=== PATIENT | female | born 1970 | race Native Hawaiian/Other Pacific Islander ===

== ENCOUNTER 2018-01-07 04:27 | Inpatient (IN) | payer BC ==
--- NOTE | 2018-01-07 04:58 | ED PDOC ---
Arrival/HPI - General Chief Complaint: Fever Time Seen by Provider: 01/07/18 04:36 Historian: Patient - History of Present Illness Narrative History of Present Illness (Text): 01/07/18 04:58 Belinda Pavon is a 47 year old female, whose past medical history includes B- cell Hodgkin's lymphoma (currently in remission), total hysterectomy with bilateral oophorectomy, and cholecystectomy, who presents to the Emergency department complaining of cough. Patient states she has been experiencing a persistent cough for the past week with associated intermittent fever and wheezing. Patient reports she age herself a Z-amanda and was prescribed Levaquin by her PMD but denies any significant relief. Patient states she has been taking Tylenol for her fever. Patient denies any nausea, vomiting, diarrhea, urinary symptoms, back pain, neck pain, headache, dizziness, or any other complaints. PMD: Dr. Sidra Guaman Time/Duration: 1 week Symptom Onset: Gradual Symptom Course: Unchanged Activities at Onset: Light Context: Home Past Medical History - Provider Review Nursing Documentation Reviewed: Yes - Cardiac Hx Cardiac Disorders: No - Pulmonary Hx Respiratory Disorders: No - Neurological Hx Neurological Disorder: No - HEENT Hx HEENT Disorder: No - Renal Hx Renal Disorder: No - Endocrine/Metabolic Hx Endocrine Disorders: No - Hematological/Oncological Hx Lymphoma: Yes (non-guardado kin's) - Integumentary Hx Dermatological Disorder: No - Musculoskeletal/Rheumatological Hx Musculoskeletal Disorders: No - Gastrointestinal Hx Gastrointestinal Disorders: No - Genitourinary/Gynecological Hx Genitourinary Disorders: No - Psychiatric Hx Psychophysiologic Disorder: No Hx Substance Use: No - Surgical History Hx Cholecystectomy: Yes Hx Hysterectomy: Yes Other/Comment: larisa ovarian cysts Family/Social History - Physician Review Nursing Documentation Reviewed: Yes Family/Social History: Unknown Family HX Smoking Status: Never Smoked Hx Alcohol Use: Yes Frequency of alcohol use: Socially Hx Substance Use: No Allergies/Home Meds Allergies/Adverse Reactions: Allergies No Known Allergies Allergy (Verified 01/07/18 04:35) Home Medications: Home Meds Medication Instructions Recorded Confirmed levoFLOXacin [Levaquin] 500 mg PO DAILY 01/07/18 01/07/18 Review of Systems - Physician Review All systems were reviewed & negative as marked: Yes - Review of Systems Constitutional: Normal. absent: Fevers Eyes: Normal ENT: Normal Respiratory: Cough, Wheezing Gastrointestinal: Normal. absent: Abdominal Pain, Diarrhea, Nausea, Vomiting Genitourinary Female: Normal. absent: Dysuria, Frequency, Hematuria, Urine Output Changes Musculoskeletal: Normal. absent: Back Pain, Neck Pain Skin: Normal. absent: Rash Neurological: Normal. absent: Headache, Dizziness Endocrine: Normal Hemo/Lymphatic: Normal Psychiatric: Normal Physical Exam Vital Signs Reviewed: Yes Vital Signs Temp Pulse Resp BP Pulse Ox 01/07/18 04:36 101.4 F H 101 H 22 119/74 98 Temperature: Febrile Blood Pressure: Normal Pulse: Regular Respiratory Rate: Normal Appearance: Positive for: Well-Appearing, Non-Toxic, Comfortable Pain Distress: None Mental Status: Positive for: Alert and Oriented X 3 - Systems Exam Head: Present: Atraumatic, Normocephalic Pupils: Present: PERRL Extroacular Muscles: Present: EOMI Conjunctiva: Present: Normal Mouth: Present: Moist Mucous Membranes Neck: Present: Normal Range of Motion Respiratory/Chest: Present: Rhonchi (Rhonchi in left lung field). No: Respiratory Distress, Accessory Muscle Use Cardiovascular: Present: Regular Rate and Rhythm, Normal S1, S2. No: Murmurs Abdomen: No: Tenderness, Distention, Peritoneal Signs Back: Present: Normal Inspection Upper Extremity: Present: Normal Inspection. No: Cyanosis, Edema Lower Extremity: Present: Normal Inspection. No: Edema Neurological: Present: GCS=15, CN II-XII Intact, Speech Normal Skin: Present: Warm, Dry, Normal Color. No: Rashes Psychiatric: Present: Alert, Oriented x 3, Normal Insight, Normal Concentration Medical Decision Making ED Course and Treatment: 01/07/18 04:58 Impression: 47 year old female complaining of fever, cough, and wheezing x 1 week. Plan: -- EKG -- Chest X-ray -- Labs, ABG,VBG, blood cultures -- Urinalysis, urine cultures -- IV fluids -- Duoneb -- Tylenol -- Reassess and disposition Progress Notes: Reviewed EKG, sinus tachycardia at 101 bpm. No acute changes. 01/07/18 06:20 Chest X-ray reviewed, shows no acute processes. 01/07/18 06:26 Due to patient's persistent symptoms, cough, fever, and failure of outpt therpay , will admit pt for IV antibiotics and further evaluation. Case discussed with Dr. Menezes, who is aware and agrees with plan. Accepts pt in to her service. Pt will go to [facility] observation for bronchitis and bronchopneumonia. Requests Dr. Bertrand on consult. - Lab Interpretations Lab Results: 01/07/18 05:20 01/07/18 05:57 Lab Results 01/07/18 05:57: Sodium 147, Chloride 107, Potassium 4.1, Carbon Dioxide 23, Anion Gap 21 H, BUN 11, Creatinine 0.8, Est GFR ( Amer) > 60, Est GFR ( Non-Af Amer) > 60, Random Glucose 117 H, Calcium 9.4, Total Bilirubin 0.6, AST 92 H, ALT 118 H, Alkaline Phosphatase 267 H, Total Protein 7.4, Albumin 4.5, Globulin 2.9, Albumin/Globulin Ratio 1.6 01/07/18 05:57: PT 13.9 H, INR 1.20 H, APTT 31.7 01/07/18 05:20: pO2 122 H, VBG pH 7.46 H, VBG pCO2 36.0 L, VBG HCO3 25.6, VBG Total CO2 26.7, VBG O2 Sat (Calc) 98.8 H, VBG Base Excess 2.0, VBG Potassium 4.0 , Sodium 138.0, Chloride 105.0, Glucose 114 H, Lactate 1.0, FiO2 21.0, Venous Blood Potassium 4.0 01/07/18 05:20: WBC 11.6 H, RBC 4.41, Hgb 13.4, Hct 39.2, MCV 88.9, MCH 30.4, MCHC 34.2, RDW 13.4, Plt Count 186, MPV 8.6, Gran % 87.1 H, Lymph % (Auto) 5.3 L , Lamb % (Auto) 6.7 H, Eos % (Auto) 0.8 L, Baso % (Auto) 0.1, Gran # 10.13 H, Lymph # (Auto) 0.6 L, Lamb # (Auto) 0.8 H, Eos # (Auto) 0.1, Baso # (Auto) 0.01 01/07/18 05:20: pCO2 30 L, pO2 116.0 H, HCO3 22.9, ABG pH 7.49 H, ABG Total CO2 23.8, ABG O2 Saturation 98.3 H, ABG O2 Content 15.8, ABG Base Excess 0.2, ABG Hemoglobin 11.5 L, ABG Carboxyhemoglobin 0.7, POC ABG HHb (Measured) 1.7, ABG Methemoglobin 0.9, ABG O2 Capacity 16.1, Hgb O2 Saturation 96.7, FiO2 21.0 I have reviewed the lab results: Yes - RAD Interpretation Radiology Orders: 01/07/18 04:59 CHEST PORTABLE [RAD] Stat Order Entry Clerk: ED Physician - EKG Interpretation Interpreted by ED Physician: Yes Type: 12 lead EKG - Medication Orders Current Medication Orders: Discontinued Medications Acetaminophen (Tylenol 325mg Tab) 650 mg PO STAT STA Stop: 01/07/18 05:07 Last Admin: 01/07/18 05:20 Dose: 650 mg MAR Pain/Vitals Document 01/07/18 05:20 ISAIAH (Rec: 01/07/18 05:20 ISAIAH [facility]) Pain Reassessment Is This A Pain ReAssessment? No Albuterol/Ipratropium (Duoneb 3 Mg/0.5 Mg (3 Ml) Ud) 3 ml IH ONCE STA Stop: 01/07/18 05:01 Last Admin: 01/07/18 05:20 Dose: 3 ml Sodium Chloride (Sodium Chloride 0.9%) 1,000 mls @ 2,000 mls/hr IV .Q30M ONE Stop: 01/07/18 05:28 Last Admin: 01/07/18 05:20 Dose: 2,000 mls/hr eMAR Start Stop Document 01/07/18 05:20 ISAIAH (Rec: 01/07/18 05:20 ISAIAH [facility]) Intravenous Solution Start Date 01/07/18 Start Time 05:20 - Scribe Statement The provider has reviewed the documentation as recorded by the Issa Brown Provider Scribe Attestation: All medical record entries made by the Scribe were at my direction and personally dictated by me. I have reviewed the chart and agree that the record accurately reflects my personal performance of the history, physical exam, medical decision making, and the department course for this patient. I have also personally directed, reviewed, and agree with the discharge instructions and disposition.' Disposition/Present on Arrival - Present on Arrival Any Indicators Present on Arrival: No History of DVT/PE: No History of Uncontrolled Diabetes: No Urinary Catheter: No History of Decub. Ulcer: No History Surgical Site Infection Following: None - Disposition Have Diagnosis and Disposition been Completed?: Yes Diagnosis: Bronchitis, Bronchopneumonia Disposition: HOSPITALIZED Disposition Time: 06:28 Patient Plan: Observation Patient Problems: Current Active Problems Problem Status Onset Bronchitis Acute Bronchopneumonia Acute Condition: STABLE Forms: [employer] (Kinyarwanda)
[2018-01-07] MEDS ORDERED: Sodium Chloride 0.9% 1,000 ML IV ONE (04:59)
[2018-01-07] MEDS ORDERED: Albuterol-Ipratrop 3 mg / 0.5 (3 ml) UD IH STA (05:00)
[2018-01-07 05:36] LABS: ARTERIAL BLOOD GAS HCO3 22.9 mmol/L (21-28); ARTERIAL BLOOD GAS HEMOGLOBIN 11.5 g/dL (11.7-17.4); ARTERIAL BLOOD GAS O2 CAPACITY 16.1 mL/dl (16-24); ARTERIAL BLOOD GAS O2 CONTENT 15.8 ML/dl (15-23); ARTERIAL BLOOD GAS O2 SAT 98.3 % (95-98); ARTERIAL BLOOD GAS PCO2 30 mm/Hg (35-45); ARTERIAL BLOOD GAS PH 7.49 (7.35-7.45); ARTERIAL BLOOD GAS TCO2 23.8 mmol.L (22-28)
[2018-01-07 05:39] LABS: BASO # 0.01 K/mm3 (0.0-2.0); BASO % 0.1 % (0.0-3.0); EOS # 0.1 (0.0-0.7); EOS % 0.8 % (1.5-5.0); GRAN # 10.13 (1.4-6.5); GRAN % 87.1 % (50.0-68.0); HEMOGLOBIN 13.4 g/dL (12.0-16.0); LYMPH # 0.6 (1.2-3.4); LYMPH % 5.3 % (22.0-35.0); MEAN CELL VOLUME 88.9 fl (80.0-105.0); MEAN CORPUSCULAR HEMOGLOBIN 30.4 pg (25.0-35.0); MEAN CORPUSCULAR HGB CONC 34.2 g/dl (31.0-37.0); MEAN PLATELET VOLUME 8.6 fl (7.0-11.0); MONO # 0.8 (0.1-0.6); MONO % 6.7 % (1.0-6.0); RBC 4.41 10^6/uL (3.5-6.1); RED CELL DISTRIBUTION WIDTH 13.4 % (11.5-14.5); WHITE BLOOD COUNT 11.6 10^3/ul (4.5-11.0)
[2018-01-07 05:45] LABS: VENOUS BLOOD GAS PO2 122 mm/Hg (30-55); VENOUS BLOOD PH 7.46 (7.32-7.43)
[2018-01-07 06:25] LABS: INR 1.2 (0.93-1.08); PARTIAL THROMBOPLASTIN TIME 31.7 Seconds (25.1-36.5); PROTHROMBIN TIME 13.9 SECONDS (9.4-12.5)
[2018-01-07 06:27] LABS: ALB/GLOB RATIO 1.6 (1.1-1.8); ALBUMIN 4.5 g/dL (3.0-4.8); ALT/SGPT 118 U/L (7-56); AST/SGOT 92 U/L (14-36); BLOOD UREA NITROGEN 11 mg/dL (7-21); CALCIUM 9.4 mg/dL (8.4-10.5); GFR AFRICAN-AMERICAN > 60; GFR NON-AFRICAN AMERICAN > 60
[2018-01-07] MEDS ORDERED: cefTRIAXone 1 gm 1 GM/100 ML BAG IV STA (06:31)
[2018-01-07] MEDS ORDERED: Azithromycin 500MG/NS 250ml 500 MG/250 ML BAG IV STA (06:31)
[2018-01-07 08:00] LABS: URINE BILIRUBIN NEGATIVE (NEGATIVE); URINE BLOOD NEGATIVE (NEGATIVE); URINE GLUCOSE (UA) NEGATIVE (NEGATIVE); URINE LEUKOCYTE ESTERASE NEGATIVE Leu/uL (NEGATIVE); URINE PROTEIN NEGATIVE mg/dL (<30 mg/dL); URINE UROBILINOGEN 0.2 E.U./dL (<1 E.U./dL)
--- NOTE | 2018-01-07 08:07 | RAD ---
HISTORY: Sepsis Patient COMPARISON: No prior. FINDINGS: LUNGS: No active pulmonary disease. PLEURA: No significant pleural effusion identified, no pneumothorax apparent. CARDIOVASCULAR: Normal. OSSEOUS STRUCTURES: No significant abnormalities. VISUALIZED UPPER ABDOMEN: Normal. OTHER FINDINGS: None. IMPRESSION: No active disease.
[2018-01-07 08:15] LABS: URINE APPEARANCE CLEAR (CLEAR); URINE COLOR YELLOW (YELLOW)
[2018-01-07] MEDS ORDERED: cefTRIAXone 1 gm 1 GM/100 ML BAG IVPB SCH (10:00)
[2018-01-07] MEDS ORDERED: Azithromycin 500 MG in Sodium Chloride 0.9% 250 ML IVPB SCH (10:00)
[2018-01-07] MEDS ORDERED: Azithromycin 500MG/NS 250ml 500 MG/250 ML BAG IVPB SCH (10:00)
[2018-01-07] MEDS: MethylPREDNISolone 40 mg Vial IVP SCH ×2 (10:40→21:07)
[2018-01-07] MEDS: Albuterol-Ipratrop 3 mg / 0.5 (3 ml) UD IH SCH ×2 (13:14→20:25)
--- NOTE | 2018-01-07 13:17 | CARD ---
APPROVED REPORT EKG Measurement Heart [id number] <Conclusion> Sinus tachycardia Otherwise normal ECG
[2018-01-07 16:17] VITALS: BMI 31.2
[2018-01-07] MEDS ORDERED: Pneumococcal 23-Valent Vaccine IM ONE (16:17)
[2018-01-07] MEDS ORDERED: Benzocaine/Menthol (Cepacol) Lozenge MT PRN (19:46)
--- NOTE | 2018-01-07 20:30 | CT ---
EXAM: CT Chest Without Intravenous Contrast EXAM DATE/TIME: 01/07/2018 7:20 PM CLINICAL HISTORY: The patient age is 47 years old and is female; Signs and symptoms; Fever and other: Bronchitis; Additional info: Pneumonia Facility exam id and description: Ct chests chest w/o contrast TECHNIQUE: Axial computed tomography images of the chest without intravenous contrast. All CT scans at this facility use one or more dose reduction techniques, viz.: automated exposure control; ma/kV adjustment per patient size (including targeted exams where dose is matched to indication; i.e. head); or iterative reconstruction technique. Coronal and sagittal reformatted images were created and reviewed. COMPARISON: DX - CHEST PORTABLE 2018-01-07 05:02 FINDINGS: Lungs: A left perihilar consolidation or mass is identified measuring 2.8 x 2.3 cm. Differential considerations include infection and malignancy. There is groundglass density and multiple nodules are visualized within the left upper lobe of the lung. One of these nodule measures 1.1 cm on series 3 image 46. On series 3 image 41, there is a 1.2 cm nodule. Additional nodules are visualized. Additional linear consolidative bands are visualized within the left lower lobe on series 4 image 78. Mild atelectatic changes visualized within the right lower lobe. Pleural space: No pneumothorax. There is a minimal right pleural effusion. Minimal irregular left pleural thickening is visualized. Heart: No cardiomegaly. No significant pericardial effusion. Bones/joints: Hypertrophic degenerative changes are noted within the spine. There is mild increased kyphosis of the thoracic spine. Vasculature: No thoracic aortic aneurysm. Lymph nodes: Small mediastinal lymph nodes are identified, without significant mediastinal lymphadenopathy. Evaluation for hilar lymphadenopathy is limited by the absence of intravenous contrast. Gallbladder and bile ducts: Surgical clips are identified within the gallbladder fossa, compatible with cholecystectomy. Tubes, lines and devices: A right-sided Port-A-Cath is visualized. IMPRESSION: 1. A left perihilar consolidation or mass is identified measuring 2.8 x 2.3 cm. Differential considerations include infection and malignancy. Clinical correlation and possible PET/CT are recommended. 2. There is groundglass density and multiple nodules are visualized within the left upper lobe of the lung measuring up to 1.2 cm. See recommendation below. 3. Additional linear consolidative bands are visualized within the left lower lobe. 4. There is a minimal right pleural effusion. Minimal irregular left pleural thickening is visualized. 5. Incidental/non-acute findings are described above. FLEISCHNER SOLID GREATER THAN 8mm MULTIPLE As per Fleischner Society 2017 guidelines for follow-up and management of pulmonary nodules: For patients at low risk (minimal or absent history of smoking and of other known risk factors), recommend CT at 3-6 months, then consider CT at 18-24 months. For patient at high risk (history of smoking or of other known risk factors), recommend CT at 3-6 months, then CT at 18-24 months.
[2018-01-07] MEDS: Vancomycin 1gm in NS 250ml 1 GM/250 ML BAG IVPB SCH (20:33)
[2018-01-07] MEDS: Cefepime IV 2 gm in NS 2 GM/100 ML BAG IVPB SCH (22:21)
[2018-01-07 23:27] LABS: PH,URINE 6.5 (4.7-8.0); URINE BILIRUBIN NEGATIVE (NEGATIVE); URINE BLOOD TRACE-INTACT (NEGATIVE); URINE GLUCOSE (UA) NEGATIVE (NEGATIVE); URINE LEUKOCYTE ESTERASE NEGATIVE Leu/uL (NEGATIVE); URINE PROTEIN TRACE mg/dL (<30 mg/dL); URINE UROBILINOGEN 0.2 E.U./dL (<1 E.U./dL)
[2018-01-07 23:35] LABS: URINE APPEARANCE SLIGHT-CLOUDY (CLEAR); URINE COLOR YELLOW (YELLOW)
--- NOTE | 2018-01-07 23:36 | CON ---
DATE: 01/07/2018 PULMONARY CONSULT REFERRING PHYSICIAN: Mitzi Menezes MD REASON FOR CONSULT: Cough, shortness of breath, fever, pneumonia. 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 From the last week and half, have been having cough. She took Zithromax as outpatient without much relief and then also went to PMD, give her Levaquin without much relief and end up come to ER with cough, shortness of breath. She does have a history of B-cell Hodgkin lymphoma treated in remission at present time. She has an extensive history of issue requiring hysterectomy and bilateral oophorectomy in the past. Does not know if snore. She is sleepy and tired during the daytime. No nausea, no vomiting, diarrhea, leg pain or leg swelling. PAST MEDICAL HISTORY: B-cell Hodgkin lymphoma in remission, history of hysterectomy and bilateral oophorectomy, history of cholecystectomy. SOCIAL HISTORY: She is a dentist. Nonsmoker, nondrinker. FAMILY HISTORY: No significant cardiopulmonary disease reported. ALLERGIES: NONE KNOWN. MEDICATIONS: She is on DuoNeb every 6 hours, Rocephin 1 g daily also Solu-Medrol 40 mg every 12 hours, Tylenol p.r.n. basis, Zithromax 500 mg daily. REVIEW OF SYSTEMS: No headache, no rhinitis. Has cough, sputum production, short of breath, wheezing. No nausea, no vomiting, no diarrhea, dysuria, leg pain or leg swelling. Daytime sleepy and tired. PHYSICAL EXAMINATION: GENERAL: Lying in the bed, mild distress. VITAL SIGNS: T-max is 101, heart rate is 92, respiratory rate is 20, blood pressure 127/83, pulse ox 98% on room air. HEENT: Moist mucous membranes. Small oral cavity. Crowded airway. Mallampati score is IV. NECK: Supple. No JVD. LUNGS: Have scattered rhonchi and wheezing. HEART: S1 and S2. ABDOMEN: Soft, nontender, no organomegaly. EXTREMITIES: No edema. NEUROLOGIC: Awake, alert, follows simple commands. LABORATORY DATA: Shows hemoglobin 13.4, hematocrit 39.2, WBC 11.6, platelet count is 186. INR 1.2. PTT is 32. Blood gases shows pH 7.49, pCO2 of 30, O2 of 116. Sodium 147, potassium 4.1, chloride 107, bicarbonate 23, BUN 11, creatinine 7.8, glucose 117, calcium 9.4, total bili 0.6, AST 92, ALT 118, alk phos is 267, albumin is 4.5. Urine is unremarkable other than some ketones. Influenza A and B is negative. Has a chest x-ray done in ER shows no active disease. Had EKG done which shows heart rate is 101, otherwise unremarkable. IMPRESSION AND PLAN: Sepsis, probably have pneumonia, rule out asthma, history of non-Hodgkin lymphoma in remission, failed outpatient treatment with Zithromax and Levaquin. Patient started on Rocephin and Zithromax. I will suggest discontinuing both of them and start cefepime, also we will start vancomycin. Get CT of the chest without contrast. Keep head elevated at 45 degrees. Aspiration precaution. Gastric prophylaxis, deep venous thrombosis prophylaxis. We will make further recommendation once the CT result is back. She could have a new onset of bronchospasm. As outpatient, may need sleep study and we will follow with you. Jefry Bertrand MD
[2018-01-07 23:53] LABS: URINE EPITHELIAL CELLS 0 - 2 /hpf (0-5); URINE RBC 0 - 2 /hpf (0-2); URINE WBC 0 - 2 /hpf (0-6)
[2018-01-08] MEDS: Albuterol-Ipratrop 3 mg / 0.5 (3 ml) UD IH SCH ×4 (02:46→20:47)
--- NOTE | 2018-01-08 03:53 | HP ---
CHIEF COMPLAINT: Cough, shortness of breath. HISTORY OF PRESENT ILLNESS: Ms. Belinda Pavon is a 47-year-old female with past medical history of B-cell Hodgkin lymphoma, currently in remission, total hysterectomy with bilateral oophorectomy, cholecystectomy, came to the emergency department complaining of cough and shortness of breath. Patient states that she has been experiencing persistent cough for past week with associated intermittent fever and wheezing. Patient reports that she used Z-Angel and levaquin that was prescribed by her PMD, but that did not help her wheezing. Denies significant relief with antibiotics. Patient states she has been taking her Tylenol for her fever. Denies nausea, vomiting, diarrhea, urinary symptoms, back pain, neck pain, headache, or dizziness. PAST MEDICAL HISTORY: As above. Non Hodgkin's lymphoma, cholecystectomy, hysterectomy, bilateral ovarian cyst removal. HABITS: Never smoked. No drugs. No ethanol. FAMILY HISTORY: Unknown family history. ALLERGIES: PATIENT IS NOT ALLERGIC WITH ANY MEDICATIONS. HOME MEDICATIONS: Levaquin. REVIEW OF SYSTEMS: Patient was seen and examined at the bedside in her room, still coughing, feeling shortness of breath. No abdominal pain. No diarrhea. No nausea or vomiting. No chest pain. No dysuria. No frequency. No hematuria. No change in the urinary output. No back pain. No neck pain. No headache. No rashes. PHYSICAL EXAMINATION: VITAL SIGNS: Temperature 101.4, pulse 101, respiratory rate 22, blood pressure 119/74, pulse oximetry 98%. HEENT: Head: Normocephalic and atraumatic. Eyes: PERRLA. Extraocular muscles are intact. Conjunctivae are clear. Nose patent. NECK: Supple. No carotid bruit, JVD or thyromegaly. CHEST: Bilaterally symmetrical. HEART: S1 and S2 positive. LUNGS: Clear to auscultation. ABDOMEN: Soft. Bowel sounds present. No organomegaly. EXTREMITIES: No edema. No cyanosis. NEUROLOGIC: Patient is awake and alert. Moving all four extremities. No focal deficit. LABORATORY DATA: White blood cells 11.6, hemoglobin 13.4, hematocrit 39.2, platelets 186. Sodium 141, potassium 4.1, BUN 11, creatinine noted glucose 117. ASSESSMENT AND PLAN: Ms. Belinda Pavon is a 47-year-old with leukocytosis, hyperglycemia, bronchitis, failed outpatient treatment, rule out bronchopneumonia. We admitted the patient, started antibiotics. CAT scan of the chest. Pulmonary consult called. Left perihilar consolidation or mass is identified, 2.8 x 2.3 cm. Differential consideration include infection or malignancy. Clinical correlation with possibly PET scan/CT scan was recommended. There is ground glass density and multiple nodularity visualized within the left upper lobe of the lung measuring up to 1.2 cm. Additionally, there is consolidation/mass visualized within the left lower lobe. There is a minimal right pleural effusion and minimal irregular flat pleural thickening visualized. Spot Sprayer is on the case. Electrocardiography and chest x-ray appreciated. Patient has a history of B-cell Hodgkin's lymphoma, currently in remission, total hysterectomy, bilateral oophorectomy. Patient was constantly coughing. They give her lozenges every 2 hours, getting albuterol, got Pneumo vaccine. Dr. Bertrand started patient on Maxipime. Started on Solu-Medrol, vancomycin. Repeat labs and gastrointestinal and deep venous thrombosis. We will follow up. Mitzi Menezes MD SEVER[facility]
[2018-01-08 06:52] LABS: BLOOD UREA NITROGEN 11 mg/dL (7-21); CALCIUM 9.4 mg/dL (8.4-10.5); GFR AFRICAN-AMERICAN > 60; GFR NON-AFRICAN AMERICAN > 60; HDL CHOLESTEROL 44 mg/dL (29-60); HEMOGLOBIN 12.7 g/dL (12.0-16.0); MEAN CELL VOLUME 88.4 fl (80.0-105.0); MEAN CORPUSCULAR HGB CONC 33.9 g/dl (31.0-37.0); MEAN PLATELET VOLUME 8.4 fl (7.0-11.0); RBC 4.24 10^6/uL (3.5-6.1); RED CELL DISTRIBUTION WIDTH 13.6 % (11.5-14.5)
[2018-01-08 07:02] LABS: LDL CHOLESTEROL 96 mg/dL (0-129)
[2018-01-08 07:05] LABS: IRON 58 ug/dL (45-180)
[2018-01-08 07:14] LABS: % IRON SATURATION 18 % (20-55); TOTAL IRON BINDING CAPACITY 315 ug/dL (265-497)
[2018-01-08] MEDS: Enoxaparin 30 mg Syringe SC SCH (10:31)
[2018-01-08] MEDS: Cefepime IV 2 gm in NS 2 GM/100 ML BAG IVPB SCH ×2 (10:31→21:46)
[2018-01-08] MEDS: MethylPREDNISolone 40 mg Vial IVP SCH ×2 (10:32→21:42)
[2018-01-08] MEDS: Vancomycin 1gm in NS 250ml 1 GM/250 ML BAG IVPB SCH ×2 (10:32→21:43)
[2018-01-08 13:59] LABS: FOLATE 17.9 ng/mL
--- NOTE | 2018-01-08 19:15 | PN ---
DATE: 01/08/2018 PULMONARY PROGRESS NOTE REFERRING PHYSICIAN: Mitzi Menezes MD. SUBJECTIVE: She is sitting up in a bed, feels a little better. Fever is down. T-max was 100.3, heart rate 74. Cough is better. No nausea. No vomiting. No diarrhea. No leg pain or leg swelling. OBJECTIVE: GENERAL: In no acute distress. VITAL SIGNS: Temp is 98, heart rate is 74, respiratory rate is 20, blood pressure 124/88, pulse ox 96% on room air. HEENT: Moist mucous membrane. Crowded airway. NECK: Supple. No JVD. LUNGS: Have scattered rhonchi, but improved. HEART: S1 and S2. ABDOMEN: Soft, nontender. No organomegaly. EXTREMITIES: No edema. NEUROLOGICAL: Awake and alert. Follows simple command. CHEST: She has a Port-A-Cath in the right chest area. LABORATORY DATA: Shows hemoglobin 12.7, hematocrit 37.5, WBC 8, platelet count is 191. Sodium 146, potassium 4.7, chloride 109, bicarbonate 25, BUN 11, creatinine 0.7, glucose 147, hemoglobin A1c 5.9, iron is 58, AST 92, ALT 118, alk phos is 267, triglycerides 114, vitamin B12 of 209, folate 17.9, TSH 0.85. Urinalysis unremarkable. Influenza A and B have been negative. Microbiology: Blood culture, sputum culture, so far there is no growth. CAT scan of the chest is done yesterday shows left perihilar consolidation or mass is identified, which is 2.8 x 2.3 cm. There are ground-glass densities and multiple nodules are visualized in the left upper lobe. One of these measured 1.1 cm in series 3, image 46. On the series 3, image 41, there is a 1.2 cm nodule. There is minimal right pleural effusion. MEDICATIONS: She is Cepacol lozenges every 2 hours p.r.n., DuoNeb every 6 hours, Lovenox 30 mg subcu daily, cefepime 2 g IV every 12 hours, Pepcid 40 mg daily, Solu-Medrol 40 mg every 12 hours, Tylenol p.r.n. basis, vancomycin 1 g IV every 12 hours. IMPRESSION AND PLAN: Sepsis with multilobe pneumonia, left hilar mass and left upper lobe infiltrate/nodules, history of non-Hodgkin's lymphoma. The patient also has a [id number]. According to the patient, her [id number] was flushed about a week to 10 days ago. At that time, it was hurting when flush was done. So far, blood culture is negative. We will get echocardiogram to assure there is no endocarditis. For now, continue antibiotics. We will cut down steroids. Continue inhaled bronchodilator. Need further CT to assure the stability of infiltrate. If does not improve, we will need biopsy. Follow up labs in the morning. Thank you and we will follow with you. Jefry Bertrand MD
--- NOTE | 2018-01-08 22:02 | CP.PCM.CON ---
<Jeanie Reyes - Last Filed: 01/08/18 21:47> History of Present Illness - History of Present Illness History of Present Illness: General Surgery consult note for Dr. Ohara Consulted for: possibly infected portacath Patient is a 47F with PMH of hodgkins lymphoma, currently in remission, who was admitted for persistent fevers and cough/chest pain. Surgery was consulted to evaluate for possible infected portacath. Patient states that her cough was non- productive, and associated with sharp chest pain. Patient denies any nausea, vomiting, diarrhea, dysuria, hematuria, back pain, or any other symptoms. Patient states that her symptoms have improved with IV antibiotics. She is currently afebrile since and initial fever on admission of 101.4. Patient has had a portacath in place in [place] right anterior chest wall for 5 years. She has had it flushed regularly and 2 weeks ago she had some pain when it was flushed, but it still functioned. Patient expresses desire to have port removed as it is no longer in use and she has had a port infection prior PMH: hodgkins lymphoma PSH: hysterectomy, oopherectomy, cholecystectomy ALL: NKDA Review of Systems - Review of Systems All systems: reviewed and no additional remarkable complaints except (as per HPI ) Past Patient History - Past Medical History & Family History Past Medical History?: Yes Past Family History: Reviewed and not pertinent - Past Social History Smoking Status: Never Smoked - CARDIAC Hx Cardiac Disorders: No - PULMONARY Hx Respiratory Disorders: Yes Hx Pneumonia: Yes - NEUROLOGICAL Hx Neurological Disorder: No - HEENT Hx HEENT Problems: No - RENAL Hx Chronic Kidney Disease: No - ENDOCRINE/METABOLIC Hx Endocrine Disorders: No - HEMATOLOGICAL/ONCOLOGICAL Hx Blood Disorders: Yes (SEPSIS) Hx Cancer: Yes (B CELL HODGKIN'S LYMPHOMA -IN REMISSION) Hx Chemotherapy: Yes (H/O) - INTEGUMENTARY Hx Dermatological Problems: No - MUSCULOSKELETAL/RHEUMATOLOGICAL Hx Musculoskeletal Disorders: No Hx Falls: No - GASTROINTESTINAL Hx Gastrointestinal Disorders: Yes Hx Gall Bladder Disease: Yes (CHOLECYTSTECTOMY 2009) - GENITOURINARY/GYNECOLOGICAL Hx Genitourinary Disorders: Yes (TOTAL HYSTERECTOMY WITH BILATERAL OOPHORECTOMY) - PSYCHIATRIC Hx Psychophysiologic Disorder: No Hx Substance Use: No - SURGICAL HISTORY Hx Surgeries: Yes (RIGHT CHEST WALL PORT X3) Hx Cholecystectomy: Yes Hx Hysterectomy: Yes Other/Comment: 2016 larisa ovarian cysts-TOTAL HYSTE RECTOMY WITH BILATERAL OOPHORECTOMY- Meds Allergies/Adverse Reactions: Allergies Allergy/AdvReac Type Severity Reaction Status Date / Time No Known Allergies Allergy Verified 01/07/18 13:52 - Medications Medications: Current Medications Acetaminophen (Tylenol 325mg Tab) 650 mg PO Q4H PRN PRN Reason: MILD PAIN 1-3, FEVER Last Admin: 01/07/18 10:38 Dose: 650 mg Albuterol/Ipratropium (Duoneb 3 Mg/0.5 Mg (3 Ml) Ud) 3 ml IH [id number] TERRELL Last Admin: 01/08/18 20:47 Dose: 3 ml Benzocaine/Menthol (Cepacol Sore Throat) 1 hilaria MT Q2H PRN PRN Reason: Sore Throat Last Admin: 01/07/18 20:50 Dose: 1 hilaria Enoxaparin Sodium (Lovenox) 30 mg SC DAILY TERRELL PRN Reason: Protocol Last Admin: 01/08/18 10:31 Dose: Not Given Famotidine (Pepcid) 40 mg PO HS TERRELL Last Admin: 01/07/18 22:21 Dose: 40 mg Cefepime HCl (Maxipime 2gm) 2 gm in 100 mls @ 100 mls/hr IVPB Q12 TERRELL PRN Reason: Protocol Stop: 01/12/18 22:01 Last Admin: 01/08/18 10:31 Dose: 100 mls/hr Vancomycin HCl (Vancomycin 1gm) 1 gm in 250 mls @ 167 mls/hr IVPB Q12H TERRELL PRN Reason: Protocol Last Admin: 01/08/18 10:32 Dose: 167 mls/hr Methylprednisolone (Solu-Medrol) 20 mg IVP Q12 TERRELL Physical Exam - Constitutional Appears: Well, Non-toxic, No Acute Distress - Head Exam Head Exam: ATRAUMATIC, NORMOCEPHALIC - Eye Exam Eye Exam: Normal appearance. absent: Conjunctival injection, Scleral icterus - ENT Exam ENT Exam: Mucous Membranes Moist - Neck Exam Neck exam: Positive for: Normal Inspection. Negative for: Tenderness Additional comments: no swelling or erythema - Respiratory Exam Respiratory Exam: NORMAL BREATHING PATTERN. absent: Accessory Muscle Use, Respiratory Distress - Cardiovascular Exam Cardiovascular Exam: RRR - GI/Abdominal Exam GI & Abdominal Exam: Soft. absent: Tenderness - Extremities Exam Extremities exam: Positive for: pedal pulses present. Negative for: calf tenderness, pedal edema - Neurological Exam Neurological exam: Alert, Oriented x3 - Psychiatric Exam Psychiatric exam: Normal Affect, Normal Mood - Skin Skin Exam: Dry, Intact, Normal Color, Warm Additional comments: site of subcutaneous portacath in right anterior chest with no overlying erythema, swelling, or fluctuance Results - Vital Signs Recent Vital Signs: Last Vital Signs Temp 98.2 F 01/08/18 06:00 Pulse 74 01/08/18 06:00 Resp 20 01/08/18 06:00 BP 124/88 01/08/18 06:00 Pulse Ox 96 01/08/18 06:00 - Labs Result Diagrams: 01/08/18 05:45 01/08/18 05:45 Assessment & Plan - Assessment and Plan (Free Text) Assessment: 47F with PMH of B-cell hodgkin's lymphoma, in remission, with fever and cough Patient has a CT scan showing a left perihilar consolidation vs mass and groundglass density and multiple nodules of the left upper lobe as well as consolidation and right pleural effusion. Blood cultures are negative x24 hours WBC wnl afebrile for >24 hours Plan: Patient has multilobar pneumonia per pulmonology--will continue to follow up their recs F/U blood cultures trend CBC Symptoms are likely not due to portacath infection, but it is no longer being used for chemotherapy. Will consider OR on Thursday for portacath removal Continue IV antibiotics per primary Discussed with Dr. Ohara, further recs per him Jeanie Reyes, PGY2 <Aden Ohara - Last Filed: 01/09/18 22:28> Meds - Medications Medications: Current Medications Acetaminophen (Tylenol 325mg Tab) 650 mg PO Q4H PRN PRN Reason: MILD PAIN 1-3, FEVER Last Admin: 01/07/18 10:38 Dose: 650 mg Albuterol/Ipratropium (Duoneb 3 Mg/0.5 Mg (3 Ml) Ud) 3 ml IH [id number] TERRELL Last Admin: 01/09/18 20:25 Dose: 3 ml Arformoterol Tartrate (Brovana) 15 mcg IH [id number] TERRELL Last Admin: 01/09/18 20:24 Dose: 15 mcg Benzocaine/Menthol (Cepacol Sore Throat) 1 hilaria MT Q2H PRN PRN Reason: Sore Throat Last Admin: 01/07/18 20:50 Dose: 1 hilaria Budesonide (Pulmicort Respules) 1 mg IH [id number] TERRELL Last Admin: 01/09/18 20:24 Dose: 1 mg Enoxaparin Sodium (Lovenox) 30 mg SC DAILY TERRELL PRN Reason: Protocol Last Admin: 01/09/18 11:00 Dose: 30 mg Famotidine (Pepcid) 40 mg PO HS TERRELL Last Admin: 01/08/18 21:42 Dose: 40 mg Cefepime HCl (Maxipime 2gm) 2 gm in 100 mls @ 100 mls/hr IVPB Q12 TERRELL PRN Reason: Protocol Stop: 01/12/18 22:01 Last Admin: 01/09/18 10:59 Dose: 100 mls/hr Vancomycin HCl (Vancomycin 1gm) 1 gm in 250 mls @ 167 mls/hr IVPB Q12H TERRELL PRN Reason: Protocol Last Admin: 01/09/18 20:23 Dose: 167 mls/hr Methylprednisolone (Solu-Medrol) 20 mg IVP Q12 TERRELL Last Admin: 01/09/18 11:00 Dose: 20 mg Results - Vital Signs Recent Vital Signs: Last Vital Signs Temp 98 F 01/09/18 16:00 Pulse 80 01/09/18 16:00 Resp 20 01/09/18 16:00 BP 121/64 01/09/18 16:00 Pulse Ox 98 01/09/18 16:00 - Labs Result Diagrams: 01/09/18 06:30 01/09/18 06:30 Labs: Laboratory Results - last 24 hr 01/09/18 01/09/18 06:30 06:30 WBC 12.1 H D RBC 3.85 Hgb 11.5 L Hct 34.1 L MCV 88.6 MCH 29.9 MCHC 33.7 RDW 13.6 Plt Count 191 MPV 8.1 Sodium 147 Potassium 4.0 Chloride 110 H Carbon Dioxide 23 Anion Gap 18 BUN 13 Creatinine 0.6 L Est GFR ( Amer) > 60 Est GFR (Non-Af Amer) > 60 Random Glucose 143 H Calcium 9.1 Total Bilirubin 0.2 AST 53 H D ALT 85 H Alkaline Phosphatase 186 H D Total Protein 6.4 Albumin 3.9 Globulin 2.5 Albumin/Globulin Ratio 1.5 Attending/Attestation - Attestation I have personally seen and examined this patient.: Yes I have fully participated in the care of the patient.: Yes I have reviewed all pertinent clinical information: Yes Notes (Text): Pt was seen and examined at bedside Agree with above note and assessment Pt with chest pain and Leucocytosis Labs and radiology reviewed Ass: Possible Pneumonia and leucocytosis, less likely port infection Plan : ID consult IV antibiotics NPO, IVF Plan d.w primary team in detail Risk and benefit explained in detail.
[2018-01-09] MEDS: Albuterol-Ipratrop 3 mg / 0.5 (3 ml) UD IH SCH ×4 (03:15→20:25)
--- NOTE | 2018-01-09 04:07 | PN ---
DATE: 01/08/2018 SUBJECTIVE: The patient is 47-year-old female. The patient was seen and examined at bedside on 01/08/2018. Her family was around. The patient was feeling better. Fevers are down, still having fever. Heart rate is 74. Cough is better. No nausea, vomiting. No diarrhea. No hematuria or hematochezia. No swelling of the leg. No chest pain. No palpitation. The patient has Port-A-Cath on the right side of the chest, is 5 years old. Currently, the patient's infection is due to Port-A-Cath and she is not using it. Every 6 weeks she has to clean that. She do not want to keep the Port-A-Cath. I put a surgical consult for removal of the Port-A-Cath. PHYSICAL EXAMINATION: VITAL SIGNS: Temperature 98, T-max 100.3, pulse 80, blood pressure 147/68, respiratory rate 20. HEENT: Head normocephalic, atraumatic. Eyes PERRLA. Extraocular muscles intact. Conjunctivae clear. Nose patent. Mucous membrane moist. NECK: Supple. No carotid bruit. No JVD or thyromegaly. CHEST: Bilaterally symmetrical. HEART: S1 and S2 positive. LUNGS: Clear to auscultation. ABDOMEN: Soft. Bowel sounds present. No organomegaly. EXTREMITIES: No edema. No cyanosis. NEUROLOGIC: Patient is awake, alert. Moving all four extremities. No focal deficit. MEDICATIONS: Cepacol lozenges, DuoNeb, Lovenox, Maxipime, Pepcid, Solu-Medrol, Tylenol, vancomycin. LABORATORY DATA: White blood cells 8, hemoglobin 13.7, hematocrit 37.5, platelets 191. Sodium 146, potassium 4.7, BUN 11, creatinine 0.7. Glucose 147, saturation 18%. AST 92, ALT 118. ASSESSMENT AND PLAN: Ms. Belinda Pavon is a 47-year-old lady with history of leukocytosis, improved, hyperchloremia, hyperglycemia, iron deficiency, abnormal liver function test, hematuria, urinary tract infection. CAT scan of the chest is done, reviewed by me. Sepsis with multilobe pneumonia, left hilar mass and left upper lobe infiltrates/nodules, history of non-Hodgkin lymphoma. The patient also has Port-A-Cath. According to the patient, her Port-A-Cath was flushed about 6 weeks ago. At that time, it was hurting when flushing was done. So far, blood cultures are negative. Dr. Bertrand ordered echocardiography to make sure there is no endocarditis. Continue antibiotics. Continue tapering dose of steroids. Still having fever, but low level. Continue bronchodilators. We have to repeat CT of the chest to see the stability of the infiltrate and if it is not getting better, we will need biopsy. Gastrointestinal and deep venous thrombosis prophylaxis. Repeat labs. We will follow up. Mitzi Menezes MD [facility]
[2018-01-09 06:59] LABS: HEMOGLOBIN 11.5 g/dL (12.0-16.0); MEAN CELL VOLUME 88.6 fl (80.0-105.0); MEAN CORPUSCULAR HEMOGLOBIN 29.9 pg (25.0-35.0); MEAN CORPUSCULAR HGB CONC 33.7 g/dl (31.0-37.0); MEAN PLATELET VOLUME 8.1 fl (7.0-11.0); RBC 3.85 10^6/uL (3.5-6.1); RED CELL DISTRIBUTION WIDTH 13.6 % (11.5-14.5); WHITE BLOOD COUNT 12.1 10^3/ul (4.5-11.0)
[2018-01-09 07:25] LABS: ALB/GLOB RATIO 1.5 (1.1-1.8); ALBUMIN 3.9 g/dL (3.0-4.8); ALT/SGPT 85 U/L (7-56); AST/SGOT 53 U/L (14-36); BLOOD UREA NITROGEN 13 mg/dL (7-21); CALCIUM 9.1 mg/dL (8.4-10.5); GFR AFRICAN-AMERICAN > 60; GFR NON-AFRICAN AMERICAN > 60
[2018-01-09] MEDS: Vancomycin 1gm in NS 250ml 1 GM/250 ML BAG IVPB SCH ×2 (08:48→20:23)
[2018-01-09] MEDS: Cefepime IV 2 gm in NS 2 GM/100 ML BAG IVPB SCH ×2 (10:59→22:34)
[2018-01-09] MEDS: Enoxaparin 30 mg Syringe SC SCH (11:00)
[2018-01-09] MEDS: MethylPREDNISolone 40 mg Vial IVP SCH ×2 (11:00→22:34)
--- NOTE | 2018-01-09 13:45 | CP.PCM.PN ---
<RussellOswaldo - Last Filed: 01/09/18 18:31> Subjective - Date & Time of Evaluation Date of Evaluation: 01/09/18 Time of Evaluation: 07:45 - Subjective Subjective: Surgery Progress note. Dr. Ohara Pt seen and examined at bedside. No acute events overnight. Patient denies any more fevers. No chills. Denies N/V/D. No Abd pain. no pain at right chest port site. Objective - Vital Signs/Intake and Output Vital Signs (last 24 hours): Temp Pulse Resp BP Pulse Ox 99.1 F 70 18 126/62 95 01/09/18 08:42 01/09/18 08:42 01/09/18 08:42 01/09/18 08:42 01/09/18 08:42 Intake and Output: 01/09/18 01/09/18 06:59 18:59 Intake Total 420 Balance 420 - Medications Medications: Current Medications Acetaminophen (Tylenol 325mg Tab) 650 mg PO Q4H PRN PRN Reason: MILD PAIN 1-3, FEVER Last Admin: 01/07/18 10:38 Dose: 650 mg Albuterol/Ipratropium (Duoneb 3 Mg/0.5 Mg (3 Ml) Ud) 3 ml IH [id number] TERRELL Last Admin: 01/09/18 08:32 Dose: 3 ml Benzocaine/Menthol (Cepacol Sore Throat) 1 hilaria MT Q2H PRN PRN Reason: Sore Throat Last Admin: 01/07/18 20:50 Dose: 1 hilaria Enoxaparin Sodium (Lovenox) 30 mg SC DAILY TERRELL PRN Reason: Protocol Last Admin: 01/09/18 11:00 Dose: 30 mg Famotidine (Pepcid) 40 mg PO HS TERRELL Last Admin: 01/08/18 21:42 Dose: 40 mg Cefepime HCl (Maxipime 2gm) 2 gm in 100 mls @ 100 mls/hr IVPB Q12 TERRELL PRN Reason: Protocol Stop: 01/12/18 22:01 Last Admin: 01/09/18 10:59 Dose: 100 mls/hr Vancomycin HCl (Vancomycin 1gm) 1 gm in 250 mls @ 167 mls/hr IVPB Q12H TERRELL PRN Reason: Protocol Last Admin: 01/09/18 08:48 Dose: 167 mls/hr Methylprednisolone (Solu-Medrol) 20 mg IVP Q12 TERRELL Last Admin: 01/09/18 11:00 Dose: 20 mg - Labs Labs: 01/09/18 06:30 01/09/18 06:30 PT 13.9 SECONDS (9.4-12.5) H 01/07/18 05:57 INR 1.20 (0.93-1.08) H 01/07/18 05:57 APTT 31.7 Seconds (25.1-36.5) 01/07/18 05:57 - Constitutional Appears: Well, No Acute Distress - Head Exam Head Exam: ATRAUMATIC, NORMAL INSPECTION, NORMOCEPHALIC - Eye Exam Eye Exam: EOMI, Normal appearance - ENT Exam ENT Exam: Mucous Membranes Moist - Respiratory Exam Respiratory Exam: NORMAL BREATHING PATTERN. absent: Accessory Muscle Use, Respiratory Distress - Cardiovascular Exam Cardiovascular Exam: RRR. absent: JVD Additional comments: Right chest wall port site palpated. No tenderness upon palpation. Skin with well healed scar noted. No signs of infection. No erythema, no induration, no Fluctuance. - GI/Abdominal Exam GI & Abdominal Exam: Soft. absent: Distended, Firm, Guarding, Rigid, Tenderness - Extremities Exam Extremities Exam: Normal Inspection. absent: Calf Tenderness - Back Exam Back Exam: NORMAL INSPECTION - Neurological Exam Neurological Exam: Alert, Awake, Oriented x3 - Skin Skin Exam: Dry, Intact, Normal Color, Warm Assessment and Plan - Assessment and Plan (Free Text) Assessment: 47yo F with Hx of B-Cell Lymphoma, and Right IJ portacath; here with fevers and cough. Surgery consulted for possible infected portacath - Low suspicion of infected port at this time Plan: - After monitoring patient's clinical status, there is low suspicion for the port to be infected at this time. We have discussed this with the patient's PMD. - Recommend r/o any new malignant processes. Consider PET scan, CT with bx - No plans for any surgical intervention at this time - Please re-consult as necessary. Further recs as per Dr. Lorenzo Wells PGY1 surgery pager: [phone] <Aden Ohara - Last Filed: 01/09/18 22:37> Objective - Vital Signs/Intake and Output Vital Signs (last 24 hours): Temp Pulse Resp BP Pulse Ox 98 F 80 20 121/64 98 01/09/18 16:00 01/09/18 16:00 01/09/18 16:00 01/09/18 16:00 01/09/18 16:00 Intake and Output: 01/09/18 01/10/18 18:59 06:59 Intake Total 925 1280 Balance 925 1280 - Medications Medications: Current Medications Acetaminophen (Tylenol 325mg Tab) 650 mg PO Q4H PRN PRN Reason: MILD PAIN 1-3, FEVER Last Admin: 01/07/18 10:38 Dose: 650 mg Albuterol/Ipratropium (Duoneb 3 Mg/0.5 Mg (3 Ml) Ud) 3 ml IH [id number] [facility] Last Admin: 01/09/18 20:25 Dose: 3 ml Arformoterol Tartrate (Brovana) 15 mcg IH [id number] [facility] Last Admin: 01/09/18 20:24 Dose: 15 mcg Benzocaine/Menthol (Cepacol Sore Throat) 1 hilaria MT Q2H PRN PRN Reason: Sore Throat Last Admin: 01/07/18 20:50 Dose: 1 hilaria Budesonide (Pulmicort Respules) 1 mg IH [id number] [facility] Last Admin: 01/09/18 20:24 Dose: 1 mg Enoxaparin Sodium (Lovenox) 30 mg SC DAILY [facility] PRN Reason: Protocol Last Admin: 01/09/18 11:00 Dose: 30 mg Famotidine (Pepcid) 40 mg PO HS [facility] Last Admin: 01/08/18 21:42 Dose: 40 mg Cefepime HCl (Maxipime 2gm) 2 gm in 100 mls @ 100 mls/hr IVPB Q12 TERRELL PRN Reason: Protocol Stop: 01/12/18 22:01 Last Admin: 01/09/18 10:59 Dose: 100 mls/hr Vancomycin HCl (Vancomycin 1gm) 1 gm in 250 mls @ 167 mls/hr IVPB Q12H TERRELL PRN Reason: Protocol Last Admin: 01/09/18 20:23 Dose: 167 mls/hr Methylprednisolone (Solu-Medrol) 20 mg IVP Q12 [facility] Last Admin: 01/09/18 11:00 Dose: 20 mg - Labs Labs: 01/09/18 06:30 01/09/18 06:30 PT 13.9 SECONDS (9.4-12.5) H 01/07/18 05:57 INR 1.20 (0.93-1.08) H 01/07/18 05:57 APTT 31.7 Seconds (25.1-36.5) 01/07/18 05:57 Attending/Attestation - Attestation I have personally seen and examined this patient.: Yes I have fully participated in the care of the patient.: Yes I have reviewed all pertinent clinical information, including history, physical exam and plan: Yes Notes (Text): Pt was seen and examined at bedside Agree with above note and assessment Pt with possible pneumonia or lung malignancy Oncology consult IV antibiotics Will decide about Portacath removal next week Plan d.w primary team in detail Risk and benefit explained in detail.
[2018-01-09] MEDS: Arformoterol 15 mcg/2 ml Inh Sol IH SCH (20:24)
[2018-01-09] MEDS: Budesonide 0.5 mg/2 ml Inhal Susp UD IH SCH (20:24)
--- NOTE | 2018-01-10 00:07 | PN ---
DATE: 01/09/2018 PULMONARY PROGRESS NOTE REFERRING PHYSICIAN: Mitzi Menezes MD. SUBJECTIVE: She is sitting up in a bed, is at bedside. Night was unremarkable. Feels a little better, still has some cough. No sputum production. No nausea, vomiting, or diarrhea. No leg pain or leg swelling. PHYSICAL EXAMINATION: GENERAL: In no acute distress. VITAL SIGNS: Temperature is 98, heart rate is 80, respiratory rate is 20, blood pressure 121/64, pulse ox 98% on room air. HEENT: Moist mucous membrane. Crowded airway. Mallampati score is 4. NECK: Supple. No JVD. LUNGS: Have scattered rhonchi, prolonged expiratory phase. HEART: S1 and S2. Abdomen: Soft, nontender. No organomegaly. EXTREMITIES: No edema. NEUROLOGIC: Awake, alert, and follows simple command. MEDICATIONS: She is on Brovana inhaled twice a day, Cepacol lozenges every 2 hours p.r.n., DuoNeb every 6 hours [id number], Lovenox 30 mg daily, cefepime 2 g IV every 12 hours, Pepcid 40 mg at bedtime, Pulmicort inhaled twice a day, Solu-Medrol 20 mg every 12 hours, Tylenol p.r.n., and vancomycin 1 g IV every 12 hours. LABORATORY DATA: Shows hemoglobin 11.5, hematocrit 34.1, WBC 12.1, platelet count is 191. Sodium 147, potassium 4, chloride 110, bicarbonate 23, BUN 13, creatinine 0.6, glucose 143, calcium 9.1. AST 53, ALT 85, alkaline phosphatase is 186, albumin is 3.9. TSH 0.85. Microbiology: Blood culture, urine culture, and sputum culture, so far there is no growth. IMPRESSION AND PLAN: Sepsis with multilobar pneumonia, left hilar mass, left upper lobe infiltrate/nodules, history of non-Hodgkin lymphoma, has a [id number]-Ikblapji. Pulmonary point of view, doing better, afebrile now, on broad-spectrum antibiotics covering healthcare-associated organism. The patient is a dentist, failed outpatient treatment. Continue steroids, bronchodilator. Her Ldoe-H-Sfswmcrt needs to come out but may be once the acute disease is over. Will need followup CT to assure the stability of hilar infiltrate. Thank you and we will follow with you. Jefry Bertrand MD [facility] # [id number]
--- NOTE | 2018-01-10 00:22 | PN ---
DATE: 01/09/2018 SUBJECTIVE: Patient is a 47-year-old female. Patient was seen and examined at the bedside. and other family members are seen in the bedside also. No acute events overnight. Denies fever. No chills. No nausea, vomiting, or diarrhea. No hematuria or hematochezia. Still coughing and having expiratory wheezing. PHYSICAL EXAMINATION: VITAL SIGNS: Temperature 99.1, pulse 70, respiratory rate 18, blood pressure 122/62, pulse oximetry 95. HEENT: Head normocephalic, atraumatic. Eyes, PERRLA. Extraocular muscles intact. Conjunctivae clear. Nose patent. Mucosus membrane moist. NECK: Supple, no carotid bruit. No JVD or thyromegaly. CHEST: Bilaterally symmetrical. HEART: S1, S2 positive. LUNGS: Clear to auscultation. ABDOMEN: Soft, bowel sounds present. No organomegaly. EXTREMITIES: No edema, no cyanosis. NEUROLOGICAL: Patient is awake, alert, moving all 4 extremities, no focal deficit. MEDICATIONS: Tylenol, DuoNeb, Cepacol lozenges, Pepcid, Maxipime, vancomycin, Solu-Medrol. LABORATORY DATA: White blood cells 12.1, hemoglobin 11.5, hematocrit 34.1, platelets 191. Sodium 147, potassium 4, BUN 30, creatinine noted , glucose 143. ASSESSMENT AND PLAN: Ms. Belinda Pavon is a 47-year-old lady with leukocytosis, anemia, hyperchloremia, hyperglycemia, history of B-cell lymphoma, Port-A-Cath in the left side of the chest, now she came with fever and chills. Currently, the patient has infection may be due to Port-A-Cath. We called Surgical consult with Dr. Ohara's team. Infectious disease is on the case and healthcare network pricing consultant for possibly infected Port-A-Cath. Low suspicion of infected Port-A-Cath at this time as per Surgery. Length of time discussion done with Dr. Ohara. Recommended to rule out any new malignant process. Consider PET scan, CT scan of the abdomen. No pain for any suspicious. No hematuria or hematochezia. Patient has multilobar pneumonia, left hilar mass and left upper lobe infiltrate and nodules. Getting antibiotics as per Infectious Disease. Surgical team and Pulmonary team. Gastrointestinal and deep venous thrombosis prophylaxis. Repeat labs. We will follow up. Mitzi Menezes MD [facility]
[2018-01-10] MEDS: Albuterol-Ipratrop 3 mg / 0.5 (3 ml) UD IH SCH ×4 (01:40→20:03)
[2018-01-10] MEDS: Arformoterol 15 mcg/2 ml Inh Sol IH SCH ×2 (07:59→20:02)
[2018-01-10] MEDS: Budesonide 0.5 mg/2 ml Inhal Susp UD IH SCH ×2 (07:59→20:04)
[2018-01-10] MEDS: Enoxaparin 30 mg Syringe SC SCH (09:59)
[2018-01-10] MEDS: Vancomycin 1gm in NS 250ml 1 GM/250 ML BAG IVPB SCH ×2 (10:00→20:24)
[2018-01-10] MEDS: Cefepime IV 2 gm in NS 2 GM/100 ML BAG IVPB SCH ×2 (10:00→22:39)
[2018-01-10] MEDS: MethylPREDNISolone 40 mg Vial IVP SCH ×2 (10:01→22:40)
--- NOTE | 2018-01-10 16:42 | PN ---
DATE: 01/10/2018 PULMONARY PROGRESS NOTE REFERRING PHYSICIAN: Mitzi Menezes MD. SUBJECTIVE: She is out of bed to chair. Night was unremarkable. Feels much better. Decreased cough, decreased shortness of breath. Still has a cough. No nausea, vomiting, or diarrhea. No leg pain or leg swelling. PHYSICAL EXAMINATION: VITAL SIGNS: No acute distress. VITAL SIGNS: Temperature is 98, heart rate is 72, respiratory rate is 18, blood pressure 131/77, pulse ox 97% on room air. HEENT: Moist mucous membrane. Crowded airway. NECK: Supple. No JVD. LUNGS: Have a scattered rhonchi, prolonged expiratory phase. HEART: S1 and S2. ABDOMEN: Soft, nontender. No organomegaly. EXTREMITIES: No edema. NEUROLOGIC: Awake, alert, and follows simple command. MEDICATIONS: She is on Brovana inhaled twice a day, Cepacol lozenges every 2 hours p.r.n., DuoNeb every 6 hours [id number], Lovenox 30 mg subcu daily, cefepime 2 g IV every 12 hours, Pepcid 40 mg daily, Pulmicort inhaled twice a day, Solu-Medrol 20 mg twice a day, Tylenol p.r.n., and vancomycin 1 g IV every 12 hours. No new changes in medication reported since yesterday. LABORATORY DATA: Reviewed and noted. Microbiology: Blood culture, urine culture, and sputum culture, so far there is no growth. IMPRESSION AND PLAN: Sepsis with multilobar infiltrate, left hilar mass like infiltrate, also has a left upper lobe nodular infiltrate, history of non-Hodgkin lymphoma, has a [id number]-[id number]. Today, she also tells me she had an abnormal mammography in the past. There were some nodules. She is supposed to have an MRI of the breast done soon to assure the stability of nodules. She is asking when she can go home. She is on vancomycin and cefepime high dose. We will repeat CT of the chest without contrast to assure the stability of that infiltrate or even improvement, because clinically she is stable. If infiltrates are improving, we will ask ID what antibiotics she should go home. Definitely, she needs followup CT in few weeks. If nodules do not improve or increase in size, definitely will need biopsy. Thank you and we will follow with you. Jefry Bertrand MD [facility] # [id number]
--- NOTE | 2018-01-10 23:35 | CT ---
EXAM: CT Chest Without Intravenous Contrast EXAM DATE/TIME: 01/10/2018 2:38 PM CLINICAL HISTORY: 47 years old, female; Pain; Chest pain; Type not specified; Additional info: Follow up for lung mass TECHNIQUE: Axial computed tomography images of the chest without intravenous contrast. All CT scans at this facility use one or more dose reduction techniques, viz.: automated exposure control; ma/kV adjustment per patient size (including targeted exams where dose is matched to indication; i.e. head); or iterative reconstruction technique. Coronal and sagittal reformatted images were created and reviewed. COMPARISON: CT - CHEST W/O CONTRAST 2018-01-07 20:01 FINDINGS: There is a right-sided portacatheter with tip in the SVC. Cholecystectomy clips are present. In the left hilar region, extending into the left upper lung and abutting the fissure, is a conglomeration of groundglass opacity, nodular infiltrate, and consolidation. Inflammatory, infectious, and neoplastic etiologies would all be possible. Findings are similar to study 3 days prior other than a pleural-based area of consolidation having increased slightly in size (image 65 current). Again seen is a focal irregular opacity in the left lower lung image 85 unchanged. Trace amount of pleural fluid or pleural thickening. IMPRESSION: Conglomerate of consolidation, nodular infiltrate, and groundglass opacity in the left hilar region extending into the left upper lung abutting the fissure similar to prior study other than a slight increase in size in a pleural-based area of consolidation. Inflammatory, infectious, and neoplastic etiologies would all be possible.The patient has a reported history of pneumonia. I would recommend followup scan after complete treatment for infection. If the infiltrate/nodules/consolidation has not resolved then PET scan may be helpful as discussed in prior report to evaluate for underlying neoplasm. Additionally, if nodules persists, follow up based on Martina criteria as discussed in prior report.
[2018-01-11] MEDS: Albuterol-Ipratrop 3 mg / 0.5 (3 ml) UD IH SCH ×4 (01:45→20:13)
[2018-01-11] MEDS: Vancomycin 1gm in NS 250ml 1 GM/250 ML BAG IVPB SCH ×3 (08:00→22:13)
[2018-01-11] MEDS: Arformoterol 15 mcg/2 ml Inh Sol IH SCH ×2 (08:01→20:13)
[2018-01-11] MEDS: Budesonide 0.5 mg/2 ml Inhal Susp UD IH SCH ×2 (08:01→20:13)
--- NOTE | 2018-01-11 08:36 | PN ---
DATE: 01/10/2018 SUBJECTIVE: Patient is 47-year-old female. The patient is seen and examined at the bedside on 01/10/2018. She is sitting on the chair. Night was unremarkable. Father was sitting on the bedside also, he is M.D. Decreased cough, decreased shortness of breath, still having cough. No nausea, vomiting or diarrhea. No fever. No chills. No headaches. No dizziness. No swelling of the legs. PHYSICAL EXAMINATION: VITAL SIGNS: Temperature is 98, heart rate is 72, respiratory rate 18, blood pressure 130/77, pulse oximetry 97% on room air. HEENT: Head: Normocephalic, atraumatic. Eyes, PERRLA. Extraocular muscles intact. Conjunctivae clear. Nose patent. Mucosus membrane moist. NECK: Supple, no carotid bruit. ABDOMEN: Soft, bowel sounds present. No organomegaly. EXTREMITIES: No edema, no cyanosis. NEUROLOGIC: Patient is awake, alert, follows simple commands. MEDICATIONS: Brovana, Cepacol lozenges, DuoNeb, Lovenox, cefepime, Pepcid, Pulmicort, Solu-Medrol tapering doses, Tylenol, vancomycin. LABORATORY DATA: We do not have recent lab today, but I reviewed old labs. ASSESSMENT AND PLAN: Ms. Belinda Pavon is a 47-year-old lady with sepsis, multilobar infiltrates,left hilar mass likely infiltrates, also has left upper lobe nodular density with history of non-Hodgkin lymphoma. Has a Psoz-B-Ntrumlkn , seen by Dr. Bertrand. She has a history of abnormal mammography in the past. There were some nodules. She is supposed to have an MRI of the breast done soon to assure the stability of the nodule. She is asking when she can go home. She is on vancomycin and cefepime at high dose. A CAT scan is repeated without contrast. I reviewed CAT scan of the chest. According to Annika Rey, conglomerate of consolidation due to the infiltrates and ground glass opacity in the left hilar region, similar to prior study other than with slight increase in the size of the pleural-based area of consolidation. Inflammatory, infectious and neoplastic etiology would be possibility. The patient has reported history of pneumonia. Just wanted followup scan and suggesting a PET scan. If nodule persists, followup based on Fleischner criteria is the possibility. Discussion done with patient. Gastrointestinal and deep venous thrombosis prophylaxis. Repeat labs. We will followup. Mitzi Menezes MD [facility]
[2018-01-11] MEDS: Enoxaparin 30 mg Syringe SC SCH (11:10)
[2018-01-11] MEDS: MethylPREDNISolone 40 mg Vial IVP SCH ×2 (17:00→22:14)
[2018-01-11] MEDS: Cefepime IV 2 gm in NS 2 GM/100 ML BAG IVPB SCH ×2 (17:00→23:27)
--- NOTE | 2018-01-11 21:26 | PN ---
DATE: 01/11/2018 PULMONARY PROGRESS NOTE REFERRING PHYSICIAN: Mitzi Menezes MD. SUBJECTIVE: She is sitting up in a bed. Family is at bedside. Night was unremarkable. Clinically, she feels better. Cough is better. No fever. No vomiting. No hematuria or diarrhea. No leg pain or leg swelling. OBJECTIVE: GENERAL: In no acute distress. VITAL SIGNS: Temp is 98, heart rate is 87, respiratory rate is 18, blood pressure 138/79, pulse ox 99% on room air. HEENT: Moist mucous membrane. Crowded airway. Mallampati score is 4. NECK: Supple. No JVD. LUNGS: Have scattered rhonchi. HEART: S1 and S2. ABDOMEN: Soft, nontender. No organomegaly. EXTREMITIES: No edema. NEUROLOGICAL: Awake and alert. Follows simple command. MEDICATIONS: She is on Brovana inhaled twice a day, Cepacol lozenges every 2 hours p.r.n., DuoNeb every 6 hours [id number], Lovenox 30 mg daily, cefepime 2 g IV every 12 hour, Pepcid 40 mg at bedtime, budesonide inhaled twice a day, Solu-Medrol 20 mg every 12 hours, Tylenol p.r.n., vancomycin 1 g IV every 12 hours. LABORATORY DATA: Shows no new lab is available since yesterday. Microbiology: Blood culture, urine culture, sputum culture, there is no growth. Repeat CAT scan of the chest was done, which shows no change in the hilar and the upper lobar infiltrate and nodules. IMPRESSION AND PLAN: Sepsis with bilateral pulmonary infiltrate; left hilar mass; also upper lobe; some nodular infiltrate; non-Hodgkin lymphoma in the past; Oguo-J-Xgkvorlo; also had some abnormal mammography in the past. Case discussed with the patient and family at bedside. All the questions answered. Option given to the patient for next diagnostic procedure including just watching how she does with antibiotics, doing followup CAT scan, understanding if it is a cancer that could be devastating and could spread. I also spoke to Dr. Kishan Guillaume, Interventional Radiology, in detail. Consideration of and fungal and metastatic disease. Dr. Kishan Guillaume will also speak to the patient today. For now, continue antibiotics, continue inhaled bronchodilator. We will discontinue prednisone and see how she does without prednisone. We will speak further to the patient tomorrow for further diagnostic procedure. Thank you and we will follow with you. Jefry Bertrand MD
[2018-01-12] MEDS: Albuterol-Ipratrop 3 mg / 0.5 (3 ml) UD IH SCH ×4 (01:48→21:20)
--- NOTE | 2018-01-12 04:22 | PN ---
DATE: 01/11/2018 SUBJECTIVE: The patient is a 47-year-old female. Patient was seen and examined at bedside on 01/11/2018. Looking comfortable. Esau was sitting on the bedside also. Shortness of breath is better. Coughing is better. Wheezing is less. No fever, no chills. No hematuria. No hematochezia. No swelling of the legs. No headache or dizziness. PHYSICAL EXAMINATION: VITAL SIGNS: Temperature 98, heart rate 87, respiratory rate 18, blood pressure 138/79, pulse oximetry 99% on room air. HEENT: Head normocephalic, atraumatic. Eyes, PERRLA. Extraocular muscles intact. Conjunctivae clear. Nose patent. Mucous membrane moist. NECK: Supple. No carotid bruit. No JVD or thyromegaly. LUNGS: Have scattered rhonchi, More expiratory wheezing . HEART: S1, S2 positive. ABDOMEN: Soft, nontender. No organomegaly. EXTREMITIES: No edema, no cyanosis. NEUROLOGICAL: Patient is awake, alert. Follow simple commands. MEDICATIONS: Brovana, Cepacol lozenges, DuoNeb, Lovenox, cefepime, Pepcid, Solu-Medrol tapering doses, Tylenol, vancomycin. LABORATORY DATA: We do not have recent lab today, but I reviewed old labs. ASSESSMENT AND PLAN: Ms. Belinda Pavon is a 47-year-old lady with sepsis, with bilateral pulmonary infiltrates,left hilar mass also upper lobe some nodular infiltrates, history of non-Hodgkin lymphoma in the past couple of years ago and was in remission, Port-A-Cath, also had some abnormal mammography in the past. Discussion done with patient and patient's length of time. All questions answered. Plan is to continue the antibiotics and prognosis is bad and next procedure is to just watching how she does with the antibiotics, doing followup CAT scan, understanding if it is a cancer that could be devastating and could spread. I also spoke to Dr. Kishan Guillaume, interventional radiologist. Consideration of biopsy. Continue antibiotics, inhaled bronchodilators. Dr. Bertrand discontinued the prednisone. Infectious Disease is on the case. Repeat labs. We will follow up. Mitzi Riri, MD [facility] # [id number] SEVERO
[2018-01-12 06:50] LABS: HEMOGLOBIN 12.1 g/dL (12.0-16.0); MEAN CELL VOLUME 88.9 fl (80.0-105.0); MEAN CORPUSCULAR HEMOGLOBIN 29.8 pg (25.0-35.0); MEAN CORPUSCULAR HGB CONC 33.5 g/dl (31.0-37.0); MEAN PLATELET VOLUME 8.3 fl (7.0-11.0); RBC 4.06 10^6/uL (3.5-6.1); RED CELL DISTRIBUTION WIDTH 13.8 % (11.5-14.5); WHITE BLOOD COUNT 11.8 10^3/ul (4.5-11.0)
[2018-01-12] MEDS: Budesonide 0.5 mg/2 ml Inhal Susp UD IH SCH ×2 (07:19→21:20)
[2018-01-12] MEDS: Arformoterol 15 mcg/2 ml Inh Sol IH SCH ×2 (07:19→21:20)
[2018-01-12 07:43] LABS: BLOOD UREA NITROGEN 15 mg/dL (7-21); CALCIUM 9.4 mg/dL (8.4-10.5); GFR AFRICAN-AMERICAN > 60; GFR NON-AFRICAN AMERICAN > 60
--- NOTE | 2018-01-12 08:34 | CON ---
DATE: 01/11/2018 TIME: 03:37 p.m. CHIEF COMPLAINT/HISTORY OF PRESENT ILLNESS: Ms. Marino is a 47-year-old who presented with symptoms of pneumonia. Her past medical history is significant for B-cell Hodgkin's lymphoma(bone marrow). This was treated in 2007 with chemotherapy. She did not require radiation. Ms. Pavon's pulmonary symptoms did not improve with outpatient Z-Angel and Levaquin. Chest CT on admission demonstrate a nodular inflammatory change in the lingula with associated left hilar adenopathy. I had a brief conversation with the patient. Options were presented. She prefers to have a followup chest CT in 4-6 weeks. If the consolidation and adenopathy is not improving, she can be evaluated for CT biopsy or bronchoscopy. Kishan Guillaume MD MTDD
[2018-01-12] MEDS: MethylPREDNISolone 40 mg Vial IVP SCH ×2 (10:16→21:43)
[2018-01-12] MEDS: Vancomycin 1gm in NS 250ml 1 GM/250 ML BAG IVPB SCH ×2 (10:17→19:48)
[2018-01-12] MEDS: Cefepime IV 2 gm in NS 2 GM/100 ML BAG IVPB SCH ×2 (10:17→21:41)
[2018-01-12] MEDS: Enoxaparin 30 mg Syringe SC SCH ×2 (10:17→10:23)
--- NOTE | 2018-01-12 23:17 | PN ---
DATE: 01/12/2018 PULMONARY PROGRESS NOTE REFERRING PHYSICIAN: Mitzi Menezes MD SUBJECTIVE: She is out of bed to chair. Night was unremarkable. Feels much better. No headache, no rhinitis. Cough is better. No nausea, no vomiting, diarrhea, leg pain or leg swelling. OBJECTIVE: GENERAL: In no acute distress. VITAL SIGNS: Temperature is 98, heart rate is 73, respiratory rate is 20, blood pressure 115/63, pulse ox 97% on room air. HEENT: Moist mucous membrane. Crowded airway. NECK: Supple. No JVD. LUNGS: Have a fair airflow with few rhonchi. HEART: S1 and S2. ABDOMEN: Soft, nontender. No organomegaly. EXTREMITIES: No edema. NEUROLOGICAL: Awake and alert. Follows simple command. MEDICATIONS: She is on Brovana inhaled twice a day, Cepacol lozenges every 2 hours p.r.n., DuoNeb every 6 hours, Levaquin 500 mg daily, Lovenox 30 mg daily, cefepime 2 g IV every 12 hours, Pepcid 40 mg at bedtime, Pulmicort inhaled twice a day, Solu-Medrol 10 mg every 12 hours, Tylenol p.r.n., vancomycin 1 g IV every 12 hours. LABORATORY DATA: Shows hemoglobin 12.1, hematocrit 36.1, WBC 11.8, platelet count is 262. Sodium 144, potassium 3.7, chloride 103, bicarbonate 28, BUN 15, creatinine 0.6, glucose 137, calcium is 9.4, procalcitonin is less than 0.05. TSH 0.85. Influenza A and B negative. Legionella is negative. Microbiology; blood culture have been negative. Sputum have been negative. Urine have been negative. IMPRESSION AND PLAN: Resolving sepsis, has a left hilar and upper lobe nodular infiltrate. History of non-Hodgkin lymphoma, has a Mtgv-U-Crmwuffh. Recently told that she has a normal mammography in the past, was told to get MRI. Case discussed with Dr. Kishan Guillaume, spoke to Dr. Menezes. My recommendation is need to make diagnosis and the patient should undergo CT-guided needle biopsy. The patient wanted to wait for 3-4 weeks and repeat CAT scan. 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 She understand risk if it is malignant, chances of metastatic diseases there. She may go home tomorrow. We will discontinue Solu-Medrol, continue Ventolin HFA every 6 hours p.r.n. Should get repeat CT of the chest without contrast in 3 weeks. Patient recommended to make followup appointment in my office. We will do pulmonary function test as outpatient. Thank you and we will follow with you. Jefry Bertrand MD
[2018-01-13] MEDS: Albuterol-Ipratrop 3 mg / 0.5 (3 ml) UD IH SCH ×2 (01:57→07:51)
--- NOTE | 2018-01-13 02:17 | PN ---
DATE: 01/12/2018 SUBJECTIVE: Patient was seen and examined at bedside, sitting on the chair and having dinner. No nausea, vomiting or diarrhea. No hematuria. No hematochezia. No swelling of the legs. No headache or dizziness. Even her cough is getting better. Shortness of breath is getting better. PHYSICAL EXAMINATION: VITAL SIGNS: Temperature 98.3, bp 120/80 respiratory rate 19. HEENT: Head normocephalic, atraumatic. Eyes, PERRLA. Extraocular muscles intact. Conjunctivae clear. Nose patent. NECK: Supple. No carotid bruit. No JVD or thyromegaly. CHEST: Bilaterally symmetrical. HEART: S1 and S2 positive. LUNGS: Clear to auscultation. ABDOMEN: Soft, bowel sounds present. No organomegaly. EXTREMITIES: No edema, no cyanosis. NEUROLOGICAL: Patient is awake, alert. Moving all 4 extremities. No focal deficits. MEDICATIONS: Brovana, Cepacol lozenges, DuoNeb, Levaquin, Lovenox, Maxipime, Pepcid, Pulmicort, Solu-Medrol tapering doses, Tylenol, vancomycin. LABORATORY DATA: White blood cells 11.8, hemoglobin 12.1, hematocrit 36.1, platelets 262. Sodium 144, potassium 3.7, BUN 15, creatinine 0.6, glucose 137. AST 53, ALT 85, alkaline phosphatase 186. ASSESSMENT AND PLAN: Ms. Belinda Pavon is a 47-year-old lady with leukocytosis, hyperglycemia, iron deficiency, abnormal liver function test, but trending down. We will do hepatitis profile. History of B-cell lymphoma, sepsis and bilateral pulmonary infiltrates, left hilar mass, also upper lobe some nodular infiltrates, has port catheter on the right side of the chest, history of abnormal mammography in the past. Length of time discussion done with the patient. 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 Dr. Kishan Guillaume also saw the patient, interventional radiologist, to make the biopsy. Dr. Kishan Guillaume also spoke to the patient and prefer antibiotics and continued inhaled bronchodilators. Infectious Disease on the case also. Reviewed Dr. Kishan Guillaume's notes. Actually, the patient failed outpatient treatment of pneumonia with Z-MELIDA and Levaquin. Dr. Kishan Guillaume offered his options to the patient. He preferred to have followup CAT scan of the chest in 4 to 6 weeks. He is consulting the patient and adenopathy is not improving. She can be evaluated for CT biopsy or bronchoscopy. We will continue all the treatment. Gastrointestinal and deep venous thrombosis prophylaxis. Repeat labs. Mitzi Menezes MD MTDD
--- NOTE | 2018-01-13 03:10 | CON ---
DATE: 01/12/2018 LOCATION: Patient is in room 370, bed 1. CHIEF COMPLAINT: Weakness times several days. HISTORY OF PRESENT ILLNESS: This is a 47-year-old female with past medical history of B-cell non-Hodgkin lymphoma treated years ago, had chemotherapy, in complete remission according to the patient and the patient's Oncologist, who still has a Port-A-Cath in, who was admitted with pulmonary symptoms and she has been having fevers at home, cough and chills. She was given Zithromax for the past 5 days, followed by Levaquin for 2 to 3 days with some resolution of the fevers and the symptoms, but not a complete resolution eventually. She sought medical care and is admitted now. States that she is feeling much better. Fevers are improved and her chills have improved. Her cough has also improved. She was seen in the emergency room by Dr. Farooq Feliciano and states that the patient had a history of total hysterectomy, bilateral oophorectomy and cholecystectomy and his note states the patient had B-cell Hodgkin lymphoma and patient stated specifically that she had non-Hodgkin lymphoma and that the patient was given Zithromax and start the patient on Levaquin and however admitted to the emergency room with tachycardia, dyspnea and fever, found to have infiltrates. REVIEW OF SYSTEMS: Reveal no abdominal pain, diarrhea or constipation. No headaches or blurry vision and no dysuria or frequency. PAST MEDICAL HISTORY: Significant for non-Hodgkin's B-cell lymphoma treated years ago with chemotherapy. PAST SURGICAL HISTORY: Significant for cholecystectomy, total hysterectomy and patient also had a Port-A-Cath that she still have. MEDICATIONS: At home, include the patient had been on Levaquin. SOCIAL HISTORY: Patient's last travel was to [place] within the last year. 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 Her mother is present at the bedside. ALLERGIES: SHE HAS NO KNOWN ALLERGIES. PHYSICAL EXAMINATION: VITAL SIGNS: Temperature is 97, T-max is 101.4, blood pressure is 170/90 with respiratory rate of 20, was up to 22 on admission, pulse of 67, which was up to 101 on admission. Patient's O2 saturation is at 96% and it was down to 95%. HEENT: Unremarkable. NECK: Supple. LUNGS: Had decreased breath sounds. HEART: Normal S1, S2. ABDOMEN: Soft, nontender. Patient has a PICC line placed in the right arm. LABORATORY DATA: Revealed patient's white count is 11,600, 87% granulocytosis, next day was up to 12,100, hemoglobin of 11 and coagulation is noted and blood gases are noted. Chemistries reveal the patient's procalcitonin is 0.05 and alk phos is 186. LFTs are mildly elevated. Creatinine is 0.6. Urinalysis is noted. Microbiology reveals the blood cultures are negative. Urine cultures are negative. Sputum cultures, normal ugo. Patient had a CAT scan of the chest, which is reviewed as a conglomerate of consolidation, nodular infiltrates, ground glass opacity, is reviewed by Dr. Annika Rey and may be inflammatory, may be infectious, may be neoplastic and who recommends I can repeat imaging. Dr. Menezes's note is reviewed and patient is on Solu-Medrol, vancomycin and cefepime. ASSESSMENT AND PLAN: A 47-year-old female with B-cell non-Hodgkin lymphoma treated years ago with chemotherapy in complete remission, now admitted with fevers, tachycardia, dyspnea with sepsis, with community-acquired pneumonia. Also, the blood cultures are negative. Patient was on antibiotics. I explained this to the patient that the Port-A-Cath still may be infected, although with a negative blood cultures since the patient was on Zithromax and Levaquin and the pros and cons have been discussed with the patient regarding keeping the Port-A-Cath. She states that she wants the Port-A-Cath kept unless absolutely necessary. I had explained to her that we will treat the patient with short course of antibiotics and repeat PET scan imaging in two weeks. Follow up with Dr. Bertrand. If the imaging does not improve, she may need a biopsy. If the imaging resolves, no biopsy and if she develops the fever, off the antibiotics have been instructed, come to the emergency room for immediate blood cultures, also . I instructed not to start antibiotics and come to the emergency room if she develops a fever after she is discharged. At this time, we will continue the vancomycin and cefepime and add p.o. Levaquin. If all cultures remain negative, she may be discharged on p.o. Levaquin in next 24 hours and we will make further decisions based on those results. So at this time, we will continue the current antibiotics of vancomycin, cefepime and add p.o. Levaquin. If cultures remain negative, may be discharged on p.o. Levaquin. She is instructed to come back to the emergency room if the patient has a fever and specifically if the patient still has the fever on antibiotics tomorrow and after completion, I advised her to repeat blood cultures and have a repeat imaging and follow up with Dr. Menezes and Dr. Bertrand. We will also order human immunodeficiency virus test and urine Legionella antigen. Patient was born in [facility], in [place] who came here at the age of 4. We will also order a QuantiFERON. Fortunato Krueger MD
[2018-01-13 06:19] LABS: HEMOGLOBIN 12.2 g/dL (12.0-16.0); MEAN CELL VOLUME 90.1 fl (80.0-105.0); MEAN CORPUSCULAR HGB CONC 33.3 g/dl (31.0-37.0); MEAN PLATELET VOLUME 8.2 fl (7.0-11.0); RBC 4.06 10^6/uL (3.5-6.1); RED CELL DISTRIBUTION WIDTH 13.9 % (11.5-14.5); WHITE BLOOD COUNT 12.5 10^3/ul (4.5-11.0)
[2018-01-13 06:48] LABS: BLOOD UREA NITROGEN 16 mg/dL (7-21); CALCIUM 8.6 mg/dL (8.4-10.5); GFR AFRICAN-AMERICAN > 60; GFR NON-AFRICAN AMERICAN > 60
[2018-01-13] MEDS: Arformoterol 15 mcg/2 ml Inh Sol IH SCH (07:51)
[2018-01-13] MEDS: Budesonide 0.5 mg/2 ml Inhal Susp UD IH SCH (07:51)
[2018-01-13 09:39] VITALS: BP 123/70; PULSE 75; RESP 20; TEMP 97.5; O2SAT 98
[2018-01-13] MEDS: Enoxaparin 30 mg Syringe SC SCH (09:44)
[2018-01-13] MEDS: Vancomycin 1gm in NS 250ml 1 GM/250 ML BAG IVPB SCH (09:48)
[2018-01-13] MEDS: MethylPREDNISolone 40 mg Vial IVP SCH (09:49)
--- NOTE | 2018-01-13 21:49 | PN ---
DATE: 01/13/2018 PULMONARY PROGRESS NOTE REFERRING PHYSICIAN: Mitzi Menezes MD SUBJECTIVE: She is out of bed to chair. Mother is at the bedside. Night was unremarkable. Wants to go home. No cough. No sputum production. No nausea. No vomiting. No diarrhea. No leg pain or leg swelling. OBJECTIVE: GENERAL: In no acute distress. VITAL SIGNS: Temperature is 98, heart rate is 75, respiratory rate is 20, blood pressure 123/70, pulse ox 98% on room air. HEENT: Moist mucous membrane. Crowded airway. Mallampati score is 4. NECK: Supple. No JVD. LUNGS: Have a fair airflow with rhonchi. HEART: S1 and S2. ABDOMEN: Soft, nontender. No organomegaly. EXTREMITIES: No edema. NEUROLOGIC: Awake and alert. Follows simple command. MEDICATIONS: She is on Brovana inhaled twice a day, Cepacol lozenges every 2 hours p.r.n., DuoNeb every 6 hours, Levaquin 500 mg daily, Lovenox 30 mg subcu daily, Pepcid 40 mg daily, Pulmicort inhaled twice a day, Solu-Medrol 10 mg daily, Tylenol on p.r.n. basis. LABORATORY DATA: Shows hemoglobin 12.2, hematocrit 36.6, WBC 12.5, platelet count is 260. Sodium 144, potassium 3.8, chloride 103, bicarbonate 29, BUN is 16, creatinine 0.7, glucose 126, calcium is 8.6. IMPRESSION AND PLAN: Left hilar nodule and also left upper lobe nodules, admitted with sepsis, treated with broad-spectrum antibiotics, improved. Has a history of non-Hodgkin lymphoma, treated. Also has some abnormal mammography as outpatient done by her Oncology. So my suggestion to the patient was go ahead and get biopsy done, the patient is reluctant at the present time. She is choosing second choice to wait for 3 weeks and repeat the CAT scan of the chest, and then take from there if she needs biopsy or if she is tanisha that there is improvement in infiltrate, looking at procalcitonin which is negative, tilting towards no biopsy but patient wants to go home understanding the risk of possible metastatic disease and worsening present health. So patient may go home with antibiotics. We will discontinue her Solu-Medrol. She will be followed up within [address] Menezes's office, and I will try to get PFT as outpatient. Thank you and we will follow with you. Jefry Bertrand MD
--- NOTE | 2018-01-14 05:23 | PN ---
DATE: 01/13/2018 SUBJECTIVE: The patient is in bed, in no acute distress, nontoxic. Seen earlier this morning in room 370. PHYSICAL EXAMINATION: VITAL SIGNS: Temperature is 98, blood pressure is 115/70, respiratory rate of 18. HEENT: Unremarkable. NECK: Supple. LUNGS: Decreased breath sounds. HEART: Normal S1, S2. ABDOMEN: Soft, nontender. LABORATORY DATA: Reveals a white count of 12,500. Microbiology revealed blood cultures are negative. MEDICATIONS: Patient is on p.o. Levaquin, IV vancomycin. Patient is also on Solu-Medrol. She was on cefepime. Pharmacy discontinued it. ASSESSMENT AND PLAN: This is a 47-year-old female with past medical history of B-cell non-Hodgkin lymphoma treated years ago, had chemotherapy, in complete remission and patient still has a Port-A-Cath, LifePort. She states she wants to Port-A-Cath off. At this point, all cultures are negative, although she was on antibiotic as outpatient. We will discontinue her vancomycin and complete p.o. Levaquin therapy and repeat imaging in 2 to 3 weeks to resolution. Patient will follow up with Dr. Bertrand. His progress note from yesterday is noted and patient advised once her antibiotics completed, in the meantime, if she does not feel better, come to the emergency room for repeat cultures as she could still have a Port-A-Cath infection, although cultures negative. We will discontinue the vancomycin IV and complete therapeutic p.o. Levaquin. Repeat imaging. May need a biopsy to rule out underlying malignancy if the imaging does not show improvement. She understands and will follow with you. Fortunato Krueger MD
[2018-01-14] MEDS ORDERED: levoFLOXacin 500 MG TAB PO SCH (15:28)
== END 2018-01-13 18:26 | disposition home or self-care (01) | DRG 871 ==
LOC: ED 04:27 → ERH 06:29 → 3RSO 09:19 → OBSVTOIN 01-08 07:52
PROVIDERS: ADMIT Internal Medicine; ATTEND Internal Medicine
DX: A41.9 Sepsis, unspecified organism (principal); J18.9 Pneumonia, unspecified organism; R73.9 Hyperglycemia, unspecified; D50.9 Iron deficiency anemia, unspecified; E87.8 Other disorders of electrolyte and fluid balance, not elsewhere classified; R92.8 Other abnormal and inconclusive findings on diagnostic imaging of breast; Z85.72 Personal history of non-Hodgkin lymphomas; Z92.21 Personal history of antineoplastic chemotherapy; Z90.710 Acquired absence of both cervix and uterus